=== PATIENT | male | born 1940 | race Caucasian/White ===

== ENCOUNTER 2020-05-17 07:19 | Day surgery (SDC) | payer MEDICARE ==
[2020-05-09 15:25] LABS: BASOPHILS # (AUTO) 0.1 X10'3 (0-0.2); BASOPHILS % (AUTO) 0.9 % (0-1); EOSINOPHILS # (AUTO) 0.1 X10'3 (0-0.9); EOSINOPHILS % (AUTO) 2.6 % (0-6); LYMPHOCYTES # (AUTO) 1.6 X10'3 (1.1-4.8); LYMPHOCYTES % (AUTO) 27.9 % (21-51); MEAN CORPUSCULAR HEMOGLOBIN 34.1 PG (27.0-31.0); MEAN CORPUSCULAR HGB CONC 34.2 g/dL (33.0-36.5); MEAN CORPUSCULAR VOLUME 99.6 FL (78-98); MEAN PLATELET VOLUME 7.7 FL (7.4-10.4); MONOCYTES # (AUTO) 0.4 X10'3 (0-0.9); MONOCYTES % (AUTO) 7.9 % (2-12); NEUTROPHILS # (AUTO) 3.4 X10'3 (1.8-7.7); NEUTROPHILS % (AUTO) 60.7 % (42-75); PRE OP HEMATOCRIT 44.1 % (42.0-52.0); PRE OP HEMOGLOBIN 15.1 g/dL (14.0-17.9); PRE OP PLATELET COUNT 184 X10'3 (140-440); RED BLOOD COUNT 4.43 X10'6 (4.70-6.10); RED CELL DISTRIBUTION WIDTH 13.2 % (11.5-14.5)
[2020-05-09 15:38] LABS: ALBUMIN 3.5 G/DL (3.4-5.0); ALBUMIN/GLOBULIN RATIO 0.9 (1.1-1.5); ALKALINE PHOSPHATASE 84 IU/L (46-116); BLOOD UREA NITROGEN 10 MG/DL (7-18); BUN/CREATININE RATIO 7.9 (5.4-32.0); CALCIUM 8.8 MG/DL (8.5-10.1); CHLORIDE 107 MMOL/L (99-107); CREATININE 1.26 MG/DL (0.60-1.10); PRE OP ALT 47 U/L (30-65); PRE OP ANION GAP 7 (8-16); PRE OP AST 27 U/L (10-37); PRE OP BILIRUB, TOTAL 0.3 MG/DL (0.0-1.0); PRE OP GLUCOSE 87 MG/DL (70-104); PRE OP POTASSIUM 4.1 MMOL/L (3.4-5.1); PRE OP SODIUM 144 MMOL/L (135-145); TOTAL PROTEIN 7.2 G/DL (6.4-8.2); eGFR 55 ML/MIN
[~2020-05-17] VITALS: Ht 167.6 cm; Wt 86.6 kg
[2020-05-17] VITALS (8 sets, daily range): BP systolic 124–146; BP diastolic 84–94
[~2020-05-17 07:19] MED LIST: AMIT25TA9 PO; ASPI-1265 PO; BUPIVAcaine/PF 2.5mg/ml (0.25%) 10ml vial ONE; DOCUMENT DATE & TIME OF BETA-BLOCKER PO ONE; GABA600T13 PO; LOSA50TA3 PO; METO-395 PO; OMEP20CA15 PO; ceFAZolin 2gm in dextrose, iso 50 ML IV ONE; famotidine 20mg tablet PO ONE; ringers solution, lacted 1,000 ML IV SCH
[2020-05-17] MEDS ORDERED: LIDOcaine 0.5% (5mg/ml) 50ml vial ONE (07:38)
[2020-05-17] MEDS ORDERED: fentaNYL/PF 50MCG/1 ML 2ML syringe ONE (10:48)
[2020-05-17] MEDS ORDERED: midazolam 1 mg/ML 2ml injection ONE (10:49)
[2020-05-17] MEDS ORDERED: hydrALAZINE 20mg/ml inj. IV PRN (11:00)
[2020-05-17] MEDS ORDERED: ondansetron/PF 4mg/2ml inj IV PRN (11:00)
[2020-05-17] MEDS ORDERED: proCHLORperazine 10 MG/2 ml inj IV PRN (11:00)
[2020-05-17] MEDS ORDERED: acetaminophen 1,000mg/100ml IV 100 ML IV PRN (11:00)
[2020-05-17] MEDS ORDERED: labetalol 20mg/4ml (5mg/ml) syringe IV PRN (11:00)
[2020-05-17] MEDS ORDERED: morphine 4 MG/ML inj SYRINge IV PRN (11:00)
[2020-05-17] MEDS ORDERED: morphine 2 MG/ML inj. syringe IV PRN (11:00)
[2020-05-17] MEDS ORDERED: ringers solution, lacted 1,000 ML IV SCH (11:00)
[2020-05-17] MEDS ORDERED: meperidine/PF 25mg/ml syringe IV PRN ×2 (11:00)
--- NOTE | 2020-05-17 12:25 | NUR ---
PT. DISCHARGED VIA WC TO FRONT ENTRANCE WITH TO VEHICLE. VSS. DENIES PAIN. LEFT WRIST DRESSING CDI. IV REMOVED. ALL DISCHARGE CRITERIA MET. ALL BELONGINGS GIVEN TO PT 9PHONE, GLASSES, DENTURES, HAT, CLOTHING) PT. VERBALIZED UNDERSTANDING OF INSTRUCTIONS. NO QUESTIONS NOTED. PT. ABLE TO TRANSFER SELF TO VEHICLE. Addendum: 05/17/20 at 1239 by Tabitha Mcintosh RN Amended: Links added.
== END 2020-05-17 12:25 | disposition home or self-care (01) ==
LOC: PAS 07:19
PROVIDERS: ATTEND Orthopaedic Surgery Hand Surgery
DX: G56.02 Carpal tunnel syndrome, left upper limb (principal); Z20.822 Contact with and (suspected) exposure to COVID-19; I10 Essential (primary) hypertension; K21.9 Gastro-esophageal reflux disease without esophagitis; B02.29 Other postherpetic nervous system involvement; M19.90 Unspecified osteoarthritis, unspecified site; Z87.891 Personal history of nicotine dependence; Z98.890 Other specified postprocedural states; Z88.0 Allergy status to penicillin; Z79.899 Other long term (current) drug therapy; Z79.82 Long term (current) use of aspirin; Z72.89 Other problems related to lifestyle
CPT/HCPCS: 36415; 64721; 80053; 85025; 93005; J2001; J2250; J3010; J3490; U0003; 87635; A4215; J7120

== ENCOUNTER 2023-10-29 09:01 | Day surgery (SDC) | payer MEDICARE, OTHER ==
[~2023-10-29] VITALS: Ht 167.6 cm; Wt 82.3 kg
[~2023-10-29 09:01] MED LIST changes: -AMIT25TA9 PO; -ASPI-1265 PO; -BUPIVAcaine/PF 2.5mg/ml (0.25%) 10ml vial ONE; -DOCUMENT DATE & TIME OF BETA-BLOCKER PO ONE; -GABA600T13 PO; +LOSA-416 PO; -LOSA50TA3 PO; -ceFAZolin 2gm in dextrose, iso 50 ML IV ONE; -famotidine 20mg tablet PO ONE; -ringers solution, lacted 1,000 ML IV SCH
[2023-10-29 09:42] VITALS: BP 175/91; PULSE 75; RESP 18
[2023-10-29] MEDS ORDERED: morphine 10mg/ml inj. ONE (10:28)
[2023-10-29] MEDS ORDERED: midazolam 1 mg/ML 2ml injection ONE (10:28)
[2023-10-29 11:00] VITALS: BP 124/61; PULSE 63; RESP 11; O2SAT 100
[2023-10-29 11:10] VITALS: BP 118/58; PULSE 65; RESP 11; O2SAT 100
[2023-10-29 11:20] VITALS: BP 129/61; PULSE 60; RESP 45; O2SAT 100
[2023-10-29 11:40] VITALS: BP 132/76; PULSE 65; RESP 16; O2SAT 97
== END 2023-10-29 11:40 | disposition home or self-care (01) ==
LOC: GI LAB 09:01
PROVIDERS: ATTEND Internal Medicine Gastroenterology
DX: R10.13 Epigastric pain (principal); R10.33 Periumbilical pain; R93.3 Abnormal findings on diagnostic imaging of other parts of digestive tract; K31.89 Other diseases of stomach and duodenum; D49.0 Neoplasm of unspecified behavior of digestive system; I10 Essential (primary) hypertension
CPT/HCPCS: 43239; J2250; J2274; J7030; Z7512; 88305; A4620